=== PATIENT | male | born 1960 | race Caucasian/White ===

== ENCOUNTER 2018-10-10 20:56 | Emergency (ER) | payer OTHER ==
[~2018-10-10] VITALS: Ht 175.3 cm; Wt 120.2 kg
[2018-10-10] MEDS ORDERED: NITROGLYCERIN IV 250 ML IV PRN (21:15)
[2018-10-10] MEDS ORDERED: METOPROLOL TARTRATE 5 MG/5 ML VIAL IVP ONE ×2 (21:15→21:28)
[2018-10-10] MEDS ORDERED: NITROGLYCERIN 0.4 MG/TAB BOTTLE SL ONE ×2 (21:15→21:23)
[2018-10-10] MEDS ORDERED: ASPIRIN 325 MG TABLET PO ONE (21:15)
[2018-10-10] MEDS ORDERED: ONDANSETRON ODT 4 MG TAB.RAPDIS SL ONE (21:15)
--- NOTE | 2018-10-10 21:15 | NUR ---
Patient arrived at the ER with CC of chest pain that started yesterday. AAOx4. In no acute distress. No GI/ concern. ECG done and patient noted with STEMI.
[2018-10-10] MEDS ORDERED: ASPIRIN 325 MG TABLET ONE (21:22)
--- NOTE | 2018-10-10 21:22 | NUR ---
Called [facility] spoke to gearcase assembler Juliana. Face sheet and ECG result fax to [facility].
[2018-10-10] MEDS ORDERED: NITROGLYCERIN IV 250 ML ONE ×2 (21:23→21:24)
[2018-10-10] MEDS ORDERED: ONDANSETRON ODT 4 MG TAB.RAPDIS ONE (21:23)
--- NOTE | 2018-10-10 21:24 | NUR ---
Dr Espinoza sander wooden pencils accepted patient.
--- NOTE | 2018-10-10 21:25 | NUR ---
911 called. Addendum: 10/10/18 at 2151 by RAUL 1 called demetrius SANTOS MD.
[2018-10-10 21:27] LABS: HEMOGLOBIN 18.1 g/dL (12.5-16.3); LYMPHOCYTES # (AUTO) 0.6 K/uL (20.0-40.0); LYMPHOCYTES % (AUTO) 4.6 % (20.5-51.5); MEAN CORPUSCULAR HEMOGLOBIN 25.7 uug (23.8-33.4); MEAN CORPUSCULAR HGB CONC 33 g/dL (32.5-36.3); MEAN CORPUSCULAR VOLUME 78.2 fL (73.0-96.2); MONOCYTES # (AUTO) 1.1 K/uL (2.0-10.0); MONOCYTES % (AUTO) 8.1 % (0.0-11.0); NEUTROPHILS # (AUTO) 11.4 K/uL (1.8-8.9); NEUTROPHILS % (AUTO) 87.3 % (38.5-71.5); PLATELET COUNT (AUTO) 180 K/uL (152-348)
[2018-10-10 21:29] LABS: RED BLOOD CELL COUNT(AUTO) 7.04 MIL/uL (4.06-5.63)
[2018-10-10 21:32] VITALS: BP 151/117
--- NOTE | 2018-10-10 21:37 | NUR ---
Patient picked up by paramedics via 911. ER Md with instruction to stop IV nitro before patient was transfered. All info given to paramedics.
[2018-10-10 21:40] LABS: CREATININE 1.6 mg/dL (0.6-1.3); POTASSIUM 4.3 mmol/L (3.5-5.1)
[2018-10-10 21:58] LABS: BAND % (MANUAL) 2 % (0-10); LYMPHOCYTES % (MANUAL) 5 % (20-40); MONOCYTES % (MANUAL) 5 % (2-10); NEUTROPHILS % (MANUAL) 85 % (42-75)
--- NOTE | 2018-10-21 08:35 | NUR ---
amended nursing note: For October 10, 2018 @2135pm Nitroglycerin drip discontinued.
== END 2018-10-10 21:35 | disposition short-term general hospital (02) ==
LOC: ER 20:57
DX: I21.3 ST elevation (STEMI) myocardial infarction of unspecified site (principal)
CPT/HCPCS: 36415; 80048; 83880; 84484; 85025; 93005; 96374; 96375; 99291; J3490 ×3; 70030-TC; A4663; Q0162